=== PATIENT | female | born 1965 | race Caucasian/White ===

== ENCOUNTER 2017-10-26 11:55 | Inpatient (IN) | payer OTHER ==
[~2017-10-26] VITALS: Ht 160 cm; Wt 54.4 kg
[~2017-10-26 11:55] MED LIST: ASPIR 8181 MG PO; COZAAR25 MG PO; PLAQUENIL PO
== END 2017-10-30 15:03 | disposition home or self-care (01) | DRG 743 ==
LOC: SURH 10-28 07:00 → O/R 10-28 07:23 → SURH 10-28 18:46 → OB/GYN 10-29 11:36
PROVIDERS: Obstetrics & Gynecology
PROC: 0UT20ZZ Resection of Bilateral Ovaries, Open Approach (ICD-10-PCS; 2017-10-28)
PROC: 0UT70ZZ Resection of Bilateral Fallopian Tubes, Open Approach (ICD-10-PCS; principal; 2017-10-28 07:00)
DX: D27.1 Benign neoplasm of left ovary (principal); N80.2 Endometriosis of fallopian tube; N83.292 Other ovarian cyst, left side; N83.291 Other ovarian cyst, right side

== ENCOUNTER 2018-07-18 08:09 | Outpatient (CLI) | payer OTHER | END 2018-07-18 08:10 | disposition home or self-care (01) | LOC: SONOGRAMA 08:09 | DX: E04.1 Nontoxic single thyroid nodule (principal) ==

== ENCOUNTER 2018-10-10 13:15 | Outpatient (CLI) | payer OTHER ==
[~2018-10-10] VITALS: Ht 160 cm; Wt 53.5 kg
== END 2018-10-10 13:30 | disposition home or self-care (01) ==
LOC: OFIC 805 13:15
DX: E04.1 Nontoxic single thyroid nodule (principal); R22.1 Localized swelling, mass and lump, neck; R68.84 Jaw pain

== ENCOUNTER 2018-10-27 08:45 | Outpatient (CLI) | payer OTHER ==
[~2018-10-27] VITALS: Ht 152.4 cm; Wt 53.5 kg
== END 2018-10-27 09:00 | disposition home or self-care (01) ==
LOC: OFIC 805 08:45
DX: M35.00 Sjogren syndrome, unspecified (principal); R68.84 Jaw pain; E04.1 Nontoxic single thyroid nodule